=== PATIENT | female | born 1950 | race Hispanic/Latino ===

== ENCOUNTER → 2020-05-29 | Outpatient (CLI) | payer MEDICARE | LOC: US 11:38 | PROVIDERS: ATTEND Internal Medicine Endocrinology, Diabetes & Metabolism | DX: E03.9 Hypothyroidism, unspecified (principal) | CPT/HCPCS: 76536 ==

== ENCOUNTER → 2024-05-17 | Outpatient (REF) | payer MEDICARE | LOC: RAD 09:51 | PROVIDERS: ATTEND Family Medicine | DX: R22.43 Localized swelling, mass and lump, lower limb, bilateral (principal); M79.605 Pain in left leg; M79.604 Pain in right leg | CPT/HCPCS: 93925; 93970 ==